=== PATIENT | female | born 1955 | race Two or more races ===

== ENCOUNTER 2018-05-03 01:15 | Emergency (ER) | payer OTHER ==
[~2018-05-03] VITALS: Ht 160 cm; Wt 71.7 kg
[2018-05-03] MEDS ORDERED: PENICILLAMINE(D-5 GM (01:30)
[2018-05-03] MEDS ORDERED: NOVOLOG100 UNIT/1 (01:52)
[2018-05-03] MEDS ORDERED: TIROSINT13 MCG (01:53)
[2018-05-03] MEDS ORDERED: ZITHROMAX200 MG (01:54)
[2018-05-03] MEDS ORDERED: SIMVASTATIN40 MG (01:55)
== END 2018-05-03 09:43 | disposition home or self-care (01) ==
LOC: ER 01:15
DX: K29.60 Other gastritis without bleeding (principal); S30.0XXA Contusion of lower back and pelvis, initial encounter; S50.01XA Contusion of right elbow, initial encounter; W18.09XA Striking against other object with subsequent fall, initial encounter; Y93.89 Activity, other specified; Y92.59 Other trade areas as the place of occurrence of the external cause; Y99.8 Other external cause status